=== PATIENT | female | born 1935 | race African-American/Black ===

== ENCOUNTER → 2017-08-15 09:48 | Outpatient (CLI) | payer MEDICARE, MEDICAID ==
[~2017-08-15 09:48] MED LIST: COREG12.5 MG PO; GLIMEPIRIDE4 MG PO; GLUCOPHAGE500 MG PO; LOTENSIN20 MG PO; PLAVIX75 MG PO; PRAVACHOL40 MG PO; TIROSINT50 MCG PO; ULTRAM50 MG PO; ZOFRAN ODT4 MG/UDTAB PO
[2017-09-02 09:21] VITALS: BMI 22.8
== END | disposition home or self-care (01) ==
LOC: D.CT 09:48
DX: R91.8 Other nonspecific abnormal finding of lung field (principal)

== ENCOUNTER → 2017-08-22 08:59 | Outpatient (CLI) | payer MEDICARE, MEDICAID ==
[2017-09-02 09:21] VITALS: BMI 22.8
== END | disposition home or self-care (01) ==
LOC: D.CT 08:59
DX: C78.00 Secondary malignant neoplasm of unspecified lung (principal)

== ENCOUNTER 2017-08-25 06:50 | Emergency (ER) | payer MEDICARE, MEDICAID ==
[~2017-08-25] VITALS: Ht 162.6 cm; Wt 78.6 kg
[2017-08-25 06:55] VITALS: Ht 162.6 cm; Wt 78.6 kg
[2017-08-25 07:27] LABS: APPEARANCE CLEAR (CLEAR); BILIRUBIN NEGATIVE (NEGATIVE); COLOR STRAW (YELLOW); GLUCOSE 1000 mg/dL (NEGATIVE); KETONE SMALL mg/dL (NEGATIVE); NITRITE NEGATIVE (NEGATIVE); PROTEIN 2+ mg/dL (NEGATIVE); UROBILINOGEN NORMAL (NORMAL)
[2017-08-25 07:35] LABS: BACTERIA FEW /hpf (NONE SEEN); EPITHELIAL CELLS 0-5 /hpf (0-5); HYALINE CAST RARE /lpf (NONE SEEN); WHITE CELLS - URINE 0-5 /hpf (0-5)
[2017-08-25 07:38] LABS: BASOPHILS 0.1 % (0-2); EOSINOPHILS 0.1 % (0-7); HEMATOCRIT 37.2 % (36.0-48.0); HEMOGLOBIN 12.4 g/dL (12-16); IMMATURE GRANULOCYTES 0.4 % (0-5); LYMPHOCYTES 8.7 % (15-50); MCH 30.2 pg (26.0-34.0); MCHC 33.3 g/dL (31.0-37.0); MCV 90.7 fL (80.0-100.0); MEAN PLATELET VOLUME 10.2 fL (7.4-10.4); NEUTROPHILS 87.7 % (40-80); RDW 11.9 % (11.5-14.5); WBC 8.4 10x3/uL (4.8-10.8)
[2017-08-25 07:41] LABS: PLATELET COUNT 250 10x3/uL (130-400)
[2017-08-25 07:53] LABS: ALBUMIN 3.9 g/dL (3.4-5.0); ANION GAP 15.6 mmol/L (8-16); BILIRUBIN - TOTAL 0.49 mg/dL (0.2-1.3); CALCIUM 9.3 mg/dL (8.5-10.1); CARBON DIOXIDE 26.3 mmol/L (21.0-32.0); CREATININE - SERUM 1.3 mg/dL (0.6-1.3); POTASSIUM - SERUM 3.9 mmol/L (3.5-5.1); PROTEIN - SERUM 8.2 g/dL (6.4-8.2)
[2017-08-25] MEDS ORDERED: PRAVACHOL40 MG PO (10:34)
[2017-08-25] MEDS ORDERED: TIROSINT50 MCG PO (10:35)
[2017-08-25] MEDS ORDERED: GLIMEPIRIDE4 MG PO (10:35)
[2017-08-25] MEDS ORDERED: COREG12.5 MG PO (10:35)
[2017-08-25] MEDS ORDERED: GLUCOPHAGE500 MG PO (10:36)
[2017-08-25] MEDS ORDERED: LOTENSIN20 MG PO (10:36)
[2017-08-25 11:04] VITALS: BP 122/78
[2017-09-02 09:21] VITALS: Ht 162.6 cm; Wt 78.6 kg
== END 2017-08-25 11:05 | disposition left against medical advice (07) ==
LOC: D.ER 06:50
PROVIDERS: Family Medicine
DX: R10.9 Unspecified abdominal pain (principal)

== ENCOUNTER 2017-08-27 09:41 | Emergency (ER) | payer MEDICARE, MEDICAID ==
[~2017-08-27] VITALS: Ht 162.6 cm; Wt 58.2 kg
[~2017-08-27 09:41] MED LIST changes: -PLAVIX75 MG PO; -ULTRAM50 MG PO; -ZOFRAN ODT4 MG/UDTAB PO
[2017-08-27 10:05] VITALS: Ht 162.6 cm; Wt 58.2 kg
[2017-08-27] MEDS ORDERED: PLAVIX75 MG PO (10:13)
[2017-08-27 10:54] LABS: BASOPHILS 0 % (0-2); EOSINOPHILS 0.1 % (0-7); HEMATOCRIT 37.2 % (36.0-48.0); HEMOGLOBIN 12.5 g/dL (12-16); IMMATURE GRANULOCYTES 0.9 % (0-5); LYMPHOCYTES 4.6 % (15-50); MCH 30.5 pg (26.0-34.0); MCHC 33.6 g/dL (31.0-37.0); MCV 90.7 fL (80.0-100.0); MEAN PLATELET VOLUME 10.6 fL (7.4-10.4); MONOCYTES 4.1 % (2-11); NEUTROPHILS 90.3 % (40-80); PLATELET COUNT 202 10x3/uL (130-400); RDW 12.1 % (11.5-14.5); WBC 15.6 10x3/uL (4.8-10.8)
[2017-08-27 11:21] LABS: ALBUMIN 2.7 g/dL (3.4-5.0); ANION GAP 11.5 mmol/L (8-16); BILIRUBIN - TOTAL 0.8 mg/dL (0.2-1.3); CARBON DIOXIDE 29.3 mmol/L (21.0-32.0); CREATININE - SERUM 1.5 mg/dL (0.6-1.3); POTASSIUM - SERUM 3.8 mmol/L (3.5-5.1); PROTEIN - SERUM 7.9 g/dL (6.4-8.2)
[2017-08-27 11:24] LABS: TROPONIN-I 0.022 ng/mL (0.000-0.060)
[2017-08-27 12:35] LABS: APPEARANCE HAZY (CLEAR); COLOR YELLOW (YELLOW)
[2017-08-27 12:36] LABS: BILIRUBIN NEGATIVE (NEGATIVE); GLUCOSE 1000 mg/dL (NEGATIVE); KETONE NEGATIVE (NEGATIVE); NITRITE NEGATIVE (NEGATIVE); PROTEIN TRACE mg/dL (NEGATIVE); UROBILINOGEN NORMAL (NORMAL)
[2017-08-27 12:37] LABS: AMORPHOUS SEDIMENT <1+ /lpf (NONE SEEN); BACTERIA MODERATE /hpf (NONE SEEN); GRANULAR CAST OCC /lpf (NONE SEEN); MUCUS <1+ /lpf (NONE SEEN); WHITE CELLS - URINE 0-5 /hpf (0-5)
[2017-08-27] MEDS ORDERED: ZOFRAN ODT4 MG/UDTAB PO (13:56)
[2017-08-27] MEDS ORDERED: ULTRAM50 MG PO (13:56)
[2017-08-27 15:23] VITALS: BP 120/54
[2017-09-02 09:21] VITALS: Ht 162.6 cm; Wt 58.2 kg
== END 2017-08-27 15:23 | disposition home or self-care (01) ==
LOC: D.ER 09:41
PROVIDERS: Family Medicine
DX: R10.31 Right lower quadrant pain (principal); Z85.850 Personal history of malignant neoplasm of thyroid

== ENCOUNTER 2017-09-02 08:19 | Outpatient (CLI) | payer MEDICARE, MEDICAID ==
[~2017-09-02] VITALS: Ht 162.6 cm; Wt 60.5 kg
[~2017-09-02 08:19] MED LIST changes: +PLAVIX75 MG PO; +ULTRAM50 MG PO; +ZOFRAN ODT4 MG/UDTAB PO
[2017-09-02 09:21] VITALS: BP 128/33; Ht 162.6 cm; Wt 60.5 kg
[2017-09-02 09:42] LABS: BASOPHILS 0.3 % (0-2); EOSINOPHILS 0.5 % (0-7); HEMOGLOBIN 9.9 g/dL (12-16); IMMATURE GRANULOCYTES 0.4 % (0-5); LYMPHOCYTES 13.4 % (15-50); MCH 29.6 pg (26.0-34.0); MCV 89.6 fL (80.0-100.0); MEAN PLATELET VOLUME 10.8 fL (7.4-10.4); MONOCYTES 4.9 % (2-11); NEUTROPHILS 80.5 % (40-80); PLATELET COUNT 220 10x3/uL (130-400); RBC 3.35 10x6/uL (4.00-5.40); RDW 12.4 % (11.5-14.5); WBC 7.5 10x3/uL (4.8-10.8)
[2017-09-02 09:54] LABS: INR 1.1 (0.85-1.17); PROTIME 13.8 SECONDS (11.6-15.0)
[2017-09-02 09:55] LABS: APTT 28.5 SECONDS (22.8-39.4)
[2017-09-02 09:59] LABS: ANION GAP 11.7 mmol/L (8-16); CALCIUM 8.5 mg/dL (8.5-10.1); CARBON DIOXIDE 29.9 mmol/L (21.0-32.0); CREATININE - SERUM 1.9 mg/dL (0.6-1.3); POTASSIUM - SERUM 3.6 mmol/L (3.5-5.1)
== END 2017-09-02 15:30 | disposition home or self-care (01) ==
LOC: D.SP 08:19 → D.CT 11:00 → D.SP 11:00
PROVIDERS: General Practice
DX: C34.11 Malignant neoplasm of upper lobe, right bronchus or lung (principal); Z01.812 Encounter for preprocedural laboratory examination

== ENCOUNTER 2017-11-17 11:03 | Inpatient (IN) | payer MEDICARE, MEDICAID ==
[~2017-11-17] VITALS: Ht 162.6 cm; Wt 56.7 kg
[2017-11-17 11:35] LABS: BASOPHILS 0 % (0-2); EOSINOPHILS 0 % (0-7); HEMATOCRIT 36.2 % (36.0-48.0); HEMOGLOBIN 11.9 g/dL (12-16); IMMATURE GRANULOCYTES 0.5 % (0-5); LYMPHOCYTES 4.8 % (15-50); MCH 28.9 pg (26.0-34.0); MCHC 32.9 g/dL (31.0-37.0); MCV 87.9 fL (80.0-100.0); MEAN PLATELET VOLUME 10.5 fL (7.4-10.4); MONOCYTES 3.3 % (2-11); NEUTROPHILS 91.4 % (40-80); RBC 4.12 10x6/uL (4.00-5.40); RDW 13.1 % (11.5-14.5); WBC 15.4 10x3/uL (4.8-10.8)
[2017-11-17 11:36] LABS: PLATELET COUNT 300 10x3/uL (130-400)
[2017-11-17 11:50] LABS: APPEARANCE CLEAR (CLEAR); BILIRUBIN NEGATIVE (NEGATIVE); COLOR YELLOW (YELLOW); GLUCOSE 1000 mg/dL (NEGATIVE); KETONE SMALL mg/dL (NEGATIVE); NITRITE NEGATIVE (NEGATIVE); PROTEIN TRACE mg/dL (NEGATIVE); UROBILINOGEN NORMAL (NORMAL)
[2017-11-17 11:51] LABS: BACTERIA FEW /hpf (NONE SEEN); EPITHELIAL CELLS 0-5 /hpf (0-5); RED CELLS - URINE 0-5 /hpf (0-5); WHITE CELLS - URINE 0-5 /hpf (0-5)
[2017-11-17 11:53] LABS: ALBUMIN 3.1 g/dL (3.4-5.0); ANION GAP 20.7 mmol/L (8-16); BILIRUBIN - TOTAL 1.62 mg/dL (0.2-1.3); CALCIUM 8.6 mg/dL (8.5-10.1); CREATININE - SERUM 1.8 mg/dL (0.6-1.3); POTASSIUM - SERUM 3.7 mmol/L (3.5-5.1); PROTEIN - SERUM 7.7 g/dL (6.4-8.2)
[2017-11-17 12:07] VITALS: BP 207/106
[2017-11-17 12:15] LABS: CKMB 0.4 U/L (0.0-3.6)
[2017-11-17 12:18] LABS: AMYLASE - SERUM 813 U/L (25-115); LIPASE 6958 U/L (73-393); TROPONIN-I < 0.017 ng/mL (0.000-0.060)
[2017-11-17 12:37] VITALS: BP 196/93
[2017-11-17 13:07] VITALS: BP 186/83
[2017-11-17 14:21] VITALS: BP 165/81
[2017-11-17 16:00] VITALS: BP 155/78
[2017-11-17 21:07] VITALS: BP 145/59
[2017-11-18 00:21] VITALS: BP 145/59; BMI 21.5
[2017-11-18 05:09] VITALS: BP 112/64
[2017-11-18 05:09] LABS: BASOPHILS 0.1 % (0-2); EOSINOPHILS 0 % (0-7); HEMATOCRIT 33.4 % (36.0-48.0); HEMOGLOBIN 11.1 g/dL (12-16); IMMATURE GRANULOCYTES 0.3 % (0-5); LYMPHOCYTES 8.3 % (15-50); MCH 28.6 pg (26.0-34.0); MCHC 33.2 g/dL (31.0-37.0); MCV 86.1 fL (80.0-100.0); MONOCYTES 3.2 % (2-11); NEUTROPHILS 88.1 % (40-80); PLATELET COUNT 266 10x3/uL (130-400); RBC 3.88 10x6/uL (4.00-5.40); RDW 13.3 % (11.5-14.5); WBC 11.8 10x3/uL (4.8-10.8)
[2017-11-18 05:54] LABS: ANION GAP 10.4 mmol/L (8-16); BILIRUBIN - TOTAL 0.69 mg/dL (0.2-1.3); CALCIUM 7.4 mg/dL (8.5-10.1); CARBON DIOXIDE 30.9 mmol/L (21.0-32.0); CREATININE - SERUM 1.4 mg/dL (0.6-1.3); MAGNESIUM - SERUM 1.3 mg/dL (1.8-2.4); PHOSPHOROUS 3.3 mg/dL (2.5-4.9); POTASSIUM - SERUM 3.3 mmol/L (3.5-5.1); PROTEIN - SERUM 6.2 g/dL (6.4-8.2)
[2017-11-18 05:55] LABS: ALBUMIN 2.3 g/dL (3.4-5.0)
[2017-11-18 08:45] VITALS: BP 130/62
[2017-11-18 09:52] LABS: LIPASE 4217 U/L (73-393)
[2017-11-18 09:54] LABS: AMYLASE - SERUM 516 U/L (25-115)
[2017-11-18 12:23] VITALS: BMI 21.4
[2017-11-18 13:21] VITALS: BP 145/63
[2017-11-18 16:41] VITALS: BP 134/69
[2017-11-18 17:43] VITALS: Ht 162.6 cm; Wt 56.7 kg
[2017-11-18 21:01] VITALS: BP 131/59
[2017-11-19 04:45] LABS: BASOPHILS 0 % (0-2); EOSINOPHILS 0 % (0-7); HEMATOCRIT 30.1 % (36.0-48.0); HEMOGLOBIN 9.9 g/dL (12-16); IMMATURE GRANULOCYTES 0.2 % (0-5); LYMPHOCYTES 9.2 % (15-50); MCH 28.4 pg (26.0-34.0); MCHC 32.9 g/dL (31.0-37.0); MCV 86.2 fL (80.0-100.0); MEAN PLATELET VOLUME 11.1 fL (7.4-10.4); MONOCYTES 4.7 % (2-11); NEUTROPHILS 85.9 % (40-80); PLATELET COUNT 214 10x3/uL (130-400); RBC 3.49 10x6/uL (4.00-5.40); RDW 13.2 % (11.5-14.5); WBC 10.2 10x3/uL (4.8-10.8)
[2017-11-19 04:57] VITALS: BP 158/63
[2017-11-19 04:58] LABS: ALBUMIN 1.9 g/dL (3.4-5.0); ANION GAP 13.6 mmol/L (8-16); BILIRUBIN - TOTAL 0.65 mg/dL (0.2-1.3); CALCIUM 7.8 mg/dL (8.5-10.1); CARBON DIOXIDE 25.9 mmol/L (21.0-32.0); CREATININE - SERUM 1.1 mg/dL (0.6-1.3); POTASSIUM - SERUM 3.5 mmol/L (3.5-5.1); PROTEIN - SERUM 5.6 g/dL (6.4-8.2)
[2017-11-19 09:19] VITALS: BP 169/65
[2017-11-19 13:27] VITALS: BP 162/78
[2017-11-19 17:44] VITALS: BP 177/67
[2017-11-19 21:10] VITALS: BP 157/62
[2017-11-20 04:29] LABS: BASOPHILS 0.1 % (0-2); EOSINOPHILS 0.1 % (0-7); HEMATOCRIT 30.5 % (36.0-48.0); HEMOGLOBIN 10.3 g/dL (12-16); IMMATURE GRANULOCYTES 0.2 % (0-5); LYMPHOCYTES 10.8 % (15-50); MCH 28.5 pg (26.0-34.0); MCHC 33.8 g/dL (31.0-37.0); MCV 84.5 fL (80.0-100.0); MEAN PLATELET VOLUME 10.9 fL (7.4-10.4); MONOCYTES 6.1 % (2-11); NEUTROPHILS 82.7 % (40-80); PLATELET COUNT 218 10x3/uL (130-400); RBC 3.61 10x6/uL (4.00-5.40); RDW 12.8 % (11.5-14.5); WBC 9.6 10x3/uL (4.8-10.8)
[2017-11-20 04:42] LABS: ALBUMIN 1.7 g/dL (3.4-5.0); ANION GAP 11.7 mmol/L (8-16); BILIRUBIN - TOTAL 0.68 mg/dL (0.2-1.3); CALCIUM 8.2 mg/dL (8.5-10.1); CARBON DIOXIDE 26.5 mmol/L (21.0-32.0); CREATININE - SERUM 0.9 mg/dL (0.6-1.3); POTASSIUM - SERUM 3.2 mmol/L (3.5-5.1); PROTEIN - SERUM 5.8 g/dL (6.4-8.2)
[2017-11-20 05:07] VITALS: BP 170/73
[2017-11-20 08:48] VITALS: BP 159/88
[2017-11-20 18:00] LABS: HEMATOCRIT 34.4 % (36.0-48.0); HEMOGLOBIN 11.5 g/dL (12-16)
[2017-11-20 21:11] VITALS: BP 142/58
[2017-11-21 04:56] LABS: BASOPHILS 0 % (0-2); EOSINOPHILS 0 % (0-7); HEMATOCRIT 32.7 % (36.0-48.0); IMMATURE GRANULOCYTES 0.2 % (0-5); LYMPHOCYTES 3.4 % (15-50); MCH 28.3 pg (26.0-34.0); MCHC 33.6 g/dL (31.0-37.0); MCV 84.1 fL (80.0-100.0); MONOCYTES 3.6 % (2-11); NEUTROPHILS 92.8 % (40-80); PLATELET COUNT 229 10x3/uL (130-400); RBC 3.89 10x6/uL (4.00-5.40); WBC 9.1 10x3/uL (4.8-10.8)
[2017-11-21 05:12] LABS: BILIRUBIN - DIRECT 0.18 mg/dL (0.00-0.30); BILIRUBIN - TOTAL 0.49 mg/dL (0.2-1.3); CALCIUM 8.2 mg/dL (8.5-10.1); CARBON DIOXIDE 24.5 mmol/L (21.0-32.0); CREATININE - SERUM 1.1 mg/dL (0.6-1.3); PROTEIN - SERUM 6.6 g/dL (6.4-8.2)
[2017-11-21 06:26] VITALS: BP 164/87
[2017-11-21 06:39] LABS: ANION GAP 15.1 mmol/L (8-16); POTASSIUM - SERUM 4.6 mmol/L (3.5-5.1)
[2017-11-21 08:45] VITALS: BP 168/87
[2017-11-21 12:44] VITALS: BP 128/83
[2017-11-21 16:46] VITALS: BP 129/63
[2017-11-21 23:12] VITALS: BP 143/61
[2017-11-22 04:44] VITALS: BP 198/84
[2017-11-22 08:36] VITALS: BP 140/55
[2017-11-22 22:28] VITALS: BP 108/58
[2017-11-23 04:59] VITALS: BP 138/55
[2017-11-23 07:03] VITALS: BP 137/51
== END 2017-11-23 16:29 | disposition home or self-care (01) | DRG 418 ==
LOC: D.ER 11:03 → D.MS 17:48 → D.EDHOLD 17:48 → D.MS 18:12
PROVIDERS: Family Medicine; Surgery
PROC: 0FT44ZZ Resection of Gallbladder, Percutaneous Endoscopic Approach (ICD-10-PCS; principal; 2017-11-20 12:00)
PROC: BF121ZZ Fluoroscopy of Gallbladder using Low Osmolar Contrast (ICD-10-PCS; 2017-11-20 12:00)
DX: K85.10 Biliary acute pancreatitis without necrosis or infection (principal); K81.0 Acute cholecystitis; C78.00 Secondary malignant neoplasm of unspecified lung; F03.90 Unspecified dementia, unspecified severity, without behavioral disturbance, psychotic disturbance, mood disturbance, and anxiety; I25.10 Atherosclerotic heart disease of native coronary artery without angina pectoris; E11.22 Type 2 diabetes mellitus with diabetic chronic kidney disease; E11.65 Type 2 diabetes mellitus with hyperglycemia; I12.9 Hypertensive chronic kidney disease with stage 1 through stage 4 chronic kidney disease, or unspecified chronic kidney disease; N18.3 Chronic kidney disease, stage 3 (moderate); Z85.850 Personal history of malignant neoplasm of thyroid

== ENCOUNTER → 2018-03-10 08:47 | Outpatient (CLI) | payer MEDICARE, MEDICAID ==
[2017-11-18 17:43] VITALS: BMI 21.4
== END | disposition home or self-care (01) ==
LOC: D.RT 08:00
DX: C34.90 Malignant neoplasm of unspecified part of unspecified bronchus or lung (principal)